=== PATIENT | male | born 1985 | race Caucasian/White ===

== ENCOUNTER 2018-01-23 16:47 | Emergency (ER) | payer BC, OTHER ==
[2018-01-23] MEDS ORDERED: Ondansetron 4 MG Tab.DIS PO ONE (17:06)
[2018-01-23] MEDS ORDERED: Acetaminophen/HYDROcodone 325-5 MG Tab PO ONE (17:06)
[2018-01-23] MEDS ORDERED: Lidocaine 1% 50 ML MDV INJECT ONE (17:35)
--- NOTE | 2018-01-23 17:49 | EDM.PDOC ---
ED HPI GENERAL MEDICAL PROBLEM - General Chief Complaint: Trauma Stated Complaint: [facility] Time Seen by Provider: 01/23/18 16:52 Source of Information: Reports: Patient, RN Notes Reviewed - History of Present Illness INITIAL COMMENTS - FREE TEXT/NARRATIVE: 32-year-old male has been brought in by [facility] after rolling the tractor he was operating on to it's side. He had dirt in the battery loader bucket of the tractor and as he was turning and stopping the tractor rolled unto it's side. It had a roll bar but no cab. He struck his head probably against the steel metal tubing of the roll bar with posterior scalp lac. He called for help due to major bleeding from the lac. He had no LOC but does have worsening [place], mild to moderate pain upper neck and back of head. No other major pain or injury. No chest pain or difficulty breathing. Posterior Headache Pain Score (Numeric/FACES): 6 - Related Data Allergies Allergy/AdvReac Type Severity Reaction Status Date / Time No Known Allergies Allergy Verified 01/23/18 17:04 Home Meds: Home Meds Acetaminophen/HYDROcodone [[place] 325-5 MG] 1 tab PO Q4H PRN #10 tablet 01/23/18 [Rx] Past Medical History Musculoskeletal History: Reports: Other (See Below) Other Musculoskeletal History: left leg with plate/rods and pins Social & Family History - Tobacco Use Smoking Status *Q: Current Every Day Smoker Years of Tobacco use: 1 Packs/Tins Daily: 0.2 - Caffeine Use Caffeine Use: Reports: Energy Drinks Caffeine Use Comment: occasional energy drinnks - Recreational Drug Use Recreational Drug Use: No Review of Systems - Review of Systems Review Of Systems: See Below Constitutional: Reports: No Symptoms Eyes: Reports: No Symptoms Ears: Reports: No Symptoms Nose: Reports: No Symptoms Mouth/Throat: Reports: No Symptoms Respiratory: Denies: Shortness of Breath, Pleuritic Chest Pain Cardiovascular: Denies: Chest Pain GI/Abdominal: Denies: Abdominal Pain, Nausea, Vomiting Musculoskeletal: Reports: Neck Pain. Denies: Shoulder Pain, Arm Pain, Back Pain Skin: Reports: Other (Large posterior scalp laceration) Neurological: Reports: Headache. Denies: Numbness, Tingling, Trouble Speaking, Weakness (Moderate) ED EXAM, GENERAL - Physical Exam Exam: See Below General Appearance: Alert, Mild Distress Eye Exam: Bilateral Eye: PERRL Ears: Normal External Exam, Normal Canal, Other (No blood or fluid from the ears ) Nose: Normal Inspection, Other (No blood or fluid from the nose) Throat/Mouth: Normal Inspection Head: Other (Large 8 cm actively bleeding laceration posterior scalp when dressing removed) Neck: Tender Midline (Right upper posterior neck) Respiratory/Chest: No Respiratory Distress, Lungs Clear, Normal Breath Sounds Cardiovascular: Regular Rate, Rhythm GI/Abdominal: Soft, Non-Tender Back Exam: No: CVA Tenderness (L), Paraspinal Tenderness Extremities: Normal Inspection Neurological: Alert, Oriented Skin Exam: Warm, Dry, Normal Color ED TRAUMA PROCEDURES - Laceration/Wound Repair Posterior Head Lac/Wound Length In cm: 8 Appearance: Irregular, Other (Moderately deep, active bleeding Center area of laceration when dressing removed) Anesthetic Type: Local Skin Prep: Saline Suture Size: 3-0 # of Sutures: 10 Suture Type: Nylon Suture Size: 4-0 # of Sutures: 6 Repaired With: Vicryl Progress/Comments: Multiple Vicryl sutures placed to control hemorrhage. Wound was then further repaired with 4-0 Vicryl subcutaneous and then 3-0 Ethilon cutaneous. Patient tolerated procedure well. Course - Vital Signs Last Recorded V/S: Last Vital Signs Temp 100.8 F H 01/23/18 17:01 Pulse 76 01/23/18 20:15 Resp 16 01/23/18 20:15 BP 119/70 01/23/18 20:15 Pulse Ox 98 01/23/18 20:15 - Orders/Labs/Meds Orders: Active Orders 24 hr Category Date Time Status Cervical Spine wo Cont [CT] Stat Exams 01/23/18 17:04 Taken Head wo Cont [CT] Stat Exams 01/23/18 17:05 Taken Meds: Medications Discontinued Medications Generic Name Dose Route Start Last Admin Trade Name Freq PRN Reason Stop Dose Admin Hydrocodone Bitart/Acetaminophen 1 tab 01/23/18 17:06 01/23/18 17:49 [place] 325-5 Mg PO 01/23/18 17:07 1 tab ONETIME ONE Administration Lidocaine HCl 50 ml 01/23/18 17:35 01/23/18 17:49 Xylocaine 1% INJECT 01/23/18 17:36 50 ml ONETIME ONE Administration Ondansetron HCl 4 mg 01/23/18 17:06 01/23/18 17:49 Zofran Odt PO 01/23/18 17:07 4 mg ONETIME ONE Administration - Re-Assessments/Exams Free Text/Narrative Re-Assessment/Exam: 01/23/18 20:34 CT of head was negative for acute abnormality, CT of neck negative for acute fracture. Patient was having moderately severe headache after arrival, was given one hydrocodone by mouth. He does have at least mild to moderate concussion. Charge instructions as documented. Departure - Departure Time of Disposition: 19:57 Disposition: Home, Self-Care 01 Condition: Fair Clinical Impression: Scalp laceration Qualifiers: Encounter type: initial encounter Qualified Code(s): S01.01XA - Laceration without foreign body of scalp, initial encounter Head concussion Qualifiers: Encounter type: initial encounter Loss of consciousness presence/duration: without LOC Qualified Code(s): S06.0X0A - Concussion without loss of consciousness, initial encounter - Discharge Information Prescriptions: Acetaminophen/HYDROcodone [[place] 325-5 MG] 1 tab PO Q4H PRN #10 tablet PRN Reason: Pain Instructions: Head Injury, Adult, Laceration Care, Adult Referrals: PCP,None [Primary Care Provider] - Forms: ED Department Discharge, ED Return to Work/School Form Additional Instructions: Rest. The treatment for head concussion is physical rest and brain rest so no exertional activity recommended for at least the next 3-5 days. You may go back to work next Sunday light duty as tolerated. Ice packs and elevation to back of head as needed for swelling, stitches out in about 12 days. Tylenol every 6- 8 hours if needed for mild to moderate discomfort or hydrocodone if needed for more severe pain. Do not take Tylenol and hydrocodone at the same time. Do not drive or work when taking hydrocodone. Follow-up clinic as needed. Return to ED as needed if symptoms worsening in any way. - My Orders Last 24 Hours: My Active Orders 01/23/18 17:04 Cervical Spine wo Cont [CT] Stat 01/23/18 17:05 Head wo Cont [CT] Stat - Assessment/Plan Last 24 Hours: My Active Orders 01/23/18 17:04 Cervical Spine wo Cont [CT] Stat 01/23/18 17:05 Head wo Cont [CT] Stat
--- NOTE | 2018-01-28 08:38 | CT ---
CT cervical spine Technique: Multiple axial sections through the cervical spine were obtained. Study was obtained from above C1 inferiorly to the top of T1. Reconstructed sagittal and coronal images were reviewed. Findings: Study less than optimal due to photon attenuation secondary to patient body habitus. Vertebral body heights are maintained. Mild disc space narrowing is noted at C7-T1. No discrete fracture is appreciated. No bony central canal stenosis is seen. Mild right sided neural foraminal stenosis is noted at C3-C4. Other neural foramina are widely patent. No abnormal subluxation is seen. Scoliosis is present. Impression: 1. Scoliosis. 2. Slight neural foraminal narrowing at C3-C4 on the right side. 3. Nothing acute is seen. Diagnostic code #2 I agree with preliminary report from [facility], finalized at 01/23/18, 8:07 PM Central Time
--- NOTE | 2018-01-30 08:09 | CT ---
Head CT Technique: Multiple axial sections through the brain were obtained. Intravenous contrast was not utilized. Comparison: No prior intracranial imaging. Soft tissue swelling and contusion seen within the posterior right scalp. Ventricles along with basal cisterns and sulci over the convexities are within normal limits for the patient's age. No abnormal parenchymal densities are seen. No evidence of intracranial hemorrhage. No midline shift or mass effect is seen. Bone window settings were reviewed which show the visualized sinuses to appear clear. No acute calvarial abnormality is identified. Impression: 1. Scalp contusion and hematoma as noted above. 2. No acute intracranial abnormality is seen. No skull fracture is identified. Diagnostic code #2 I agree with preliminary report issued by [facility] ([facility] preliminary report dictated on 01/23/18, 8:04 PM Central Time)
== END 2018-01-23 20:15 | disposition home or self-care (01) ==
LOC: JD.ED 16:47
DX: S06.0X0A Concussion without loss of consciousness, initial encounter (principal); F17.210 Nicotine dependence, cigarettes, uncomplicated; S01.01XA Laceration without foreign body of scalp, initial encounter; W22.8XXA Striking against or struck by other objects, initial encounter
CPT/HCPCS: 12034; 70450; 72125; 99284; A9270; 13121

== ENCOUNTER 2019-11-28 19:56 | Emergency (ER) | payer BC ==
[2019-11-28] MEDS ORDERED: Sodium Chloride 0.9% 10 ML Syringe FLUSH PRN (20:38)
[2019-11-28] MEDS ORDERED: Ketorolac 30 MG/ML SDV IVPUSH ONE (20:48)
[2019-11-28] MEDS ORDERED: Ondansetron 4 MG/2 ML SDV IVPUSH ONE (20:48)
--- NOTE | 2019-11-28 20:56 | EDM.PDOC ---
ED HPI GENERAL MEDICAL PROBLEM - General Chief Complaint: Gastrointestinal Problem Stated Complaint: ABDOMINAL PAIN DIARRHEA Time Seen by Provider: 11/28/19 19:59 Source of Information: Reports: Patient History Limitations: Reports: No Limitations - History of Present Illness INITIAL COMMENTS - FREE TEXT/NARRATIVE: Patient is a 34-year-old male who presents to the emergency department with complaints of cramping abdominal pain, watery yellow stools, and nausea with emesis x2. He states the symptoms began abruptly around 3:00pm this afternoon. Prior to this time he is feeling well. The pain is localized to his epigastrum. Describes as a constant dull ache with intermittent sharp, cramping pain. He states that he can go about 20 minutes or so without having significant pain, however the cramping always returns. He has had about 8 episodes of watery, yellow diarrhea since 3:00 this afternoon. He states he did have 2 small emesis, but overall he feels mostly just nauseous. He has been able to keep fluids down. He has not had any questionable food intake. He states he did eat some popcorn since shortly prior to the onset of symptoms, however in the 8 to 10 hours prior to that he did not have anything questionable. He has had no fever or chills. - Related Data Allergies Allergy/AdvReac Type Severity Reaction Status Date / Time No Known Allergies Allergy Verified 01/23/18 17:04 Past Medical History HEENT History: Reports: Impaired Vision Musculoskeletal History: Reports: Other (See Below) Other Musculoskeletal History: left leg with plate/rods and pins Social & Family History - Family History Family Medical History: Noncontributory - Caffeine Use Caffeine Use: Reports: Energy Drinks Caffeine Use Comment: occasional energy drinnks ED ROS GENERAL - Review of Systems Review Of Systems: See Below Constitutional: Reports: Decreased Appetite. Denies: Fever, Chills HEENT: Reports: No Symptoms Respiratory: Reports: No Symptoms Cardiovascular: Reports: No Symptoms Endocrine: Reports: No Symptoms GI/Abdominal: Reports: Abdominal Pain (Epigastric cramping), Diarrhea, Decreased Appetite, Nausea, Vomiting : Reports: No Symptoms. Denies: Flank Pain Musculoskeletal: Reports: No Symptoms Skin: Reports: No Symptoms Neurological: Reports: No Symptoms Psychiatric: Reports: No Symptoms Hematologic/Lymphatic: Reports: No Symptoms Immunologic: Reports: No Symptoms ED EXAM, GI/ABD - Physical Exam Exam: See Below Exam Limited By: No Limitations General Appearance: Alert, WD/WN, Mild Distress Respiratory/Chest: No Respiratory Distress, Lungs Clear, Normal Breath Sounds, No Accessory Muscle Use, Chest Non-Tender Cardiovascular: Normal Peripheral Pulses, Regular Rate, Rhythm, No Edema, No Gallop, No JVD, No Murmur, No Rub GI/Abdominal Exam: Normal Bowel Sounds, Soft, No Organomegaly, No Distention, No Abnormal Bruit, No Mass, Pelvis Stable, Guarding, Rigid, Rebound, Tender (Epigastric) Neurological: Alert, Oriented, CN II-XII Intact, Normal Cognition, Normal Gait, Normal Reflexes, No Motor/Sensory Deficits Psychiatric: Normal Affect, Normal Mood Skin Exam: Warm, Dry, Intact, Normal Color, No Rash Course - Vital Signs Last Recorded V/S: Last Vital Signs Temp 97.9 F 11/28/19 20:32 Pulse 81 11/28/19 20:32 Resp 16 11/28/19 20:32 BP 131/77 11/28/19 20:32 Pulse Ox 98 11/28/19 20:32 - Orders/Labs/Meds Orders: Active Orders 24 hr Category Date Time Status Peripheral IV Care [RC] . DIRECTED Care 11/28/19 20:38 Active Peripheral IV Insertion Adult [OM.PC] Stat Oth 11/28/19 20:38 Ordered Labs: Laboratory Tests 11/28/19 11/28/19 11/28/19 Range/Units 20:40 20:40 20:40 WBC 13.86 H (4.23-9.07) K/mm3 RBC 5.29 (4.63-6.08) M/mm3 Hgb 15.7 (13.7-17.5) gm/dl Hct 45.1 (40.1-51.0) % MCV 85.3 (79.0-92.2) fl MCH 29.7 (25.7-32.2) pg MCHC 34.8 (32.2-35.5) g/dl RDW Std Deviation 40.9 (35.1-43.9) fL Plt Count 259 (163-337) K/mm3 MPV 10.8 (9.4-12.3) fl Neut % (Auto) 72.4 H (34.0-67.9) % Lymph % (Auto) 16.9 L (21.8-53.1) % [place] % (Auto) 8.4 (5.3-12.2) % Eos % (Auto) 1.8 (0.8-7.0) Baso % (Auto) 0.2 (0.1-1.2) % Neut # (Auto) 10.03 H (1.78-5.38) K/mm3 Lymph # (Auto) 2.34 (1.32-3.57) K/mm3 [place] # (Auto) 1.17 H (0.30-0.82) K/mm3 Eos # (Auto) 0.25 (0.04-0.54) K/mm3 Baso # (Auto) 0.03 (0.01-0.08) K/mm3 Sodium 143 (136-145) mEq/L Potassium 3.4 L (3.5-5.1) mEq/L Chloride 106 (98-107) mEq/L Carbon Dioxide 24 (21-32) mEq/L Anion Gap 16.4 H (5-15) BUN 9 (7-18) mg/dL Creatinine 1.0 (0.7-1.3) mg/dL Est Cr Clr Drug Dosing 112.95 mL/min Estimated GFR (MDRD) > 60 (>60) mL/min BUN/Creatinine Ratio 9.0 L (14-18) Glucose 87 (74-106) mg/dL Calcium 9.1 (8.5-10.1) mg/dL Magnesium 1.9 (1.8-2.4) mg/dl Total Bilirubin 0.6 (0.2-1.0) mg/dL AST 28 (15-37) U/L ALT 62 (16-63) U/L Alkaline Phosphatase 90 (46-116) U/L C-Reactive Protein 1.1 H* (<1.0) mg/dL Total Protein 8.0 (6.4-8.2) g/dl Albumin 4.1 (3.4-5.0) g/dl Globulin 3.9 gm/dL Albumin/Globulin Ratio 1.1 (1-2) Lipase 54 L (73-393) U/L Meds: Medications Discontinued Medications Generic Name Dose Route Start Last Admin Trade Name Freq PRN Reason Stop Dose Admin Dicyclomine HCl 20 mg 11/28/19 22:04 11/28/19 22:11 Bentyl PO 11/28/19 22:05 20 mg ONETIME ONE Administration Sodium Chloride 1,000 mls @ 999 mls/hr 11/28/19 21:00 11/28/19 20:57 Normal Saline IV 999 mls/hr ASDIRECTED DHRUV Administration Ketorolac Tromethamine 30 mg 11/28/19 20:48 11/28/19 20:57 Toradol IVPUSH 11/28/19 20:49 30 mg ONETIME ONE Administration Ondansetron HCl 4 mg 11/28/19 20:48 11/28/19 20:57 Zofran IVPUSH 11/28/19 20:49 4 mg ONETIME ONE Administration Sodium Chloride 10 ml 11/28/19 20:38 11/28/19 20:44 Saline Flush FLUSH 10 ml ASDIRECTED PRN Administration Keep Vein Open - Re-Assessments/Exams Free Text/Narrative Re-Assessment/Exam: 11/28/19 22:13 Hematology significant for white count slightly elevated at 13.86, likely due to stress response. Potassium minimally low at 3.4, anion gap slightly elevated at 16.4, CRP minimally elevated at 1.1. Alk phos is normal, lipase is slightly low. Patient's pain is localized to the epigastrium. He has no tenderness in any other areas of the abdomen which lessens concern for cholecystitis, pancreatitis, diverticulitis, or appendicitis. Discussed with patient that he is likely suffering from a viral gastroenteritis. He does intermittently still have the stabbing, cramping pain in the epigastrium. I have ordered Bentyl to be given now. I will discharge him home with dicyclomine and Zofran through the instymed. Clear liquid diet for the next 24 to 48 hours and advance as tolerated. Return to the ER for worsening symptoms. Discharge instructions as documented. Departure - Departure Time of Disposition: 22:18 Disposition: Home, Self-Care 01 Condition: Good Clinical Impression: Gastroenteritis - Discharge Information *PRESCRIPTION DRUG MONITORING PROGRAM REVIEWED*: No *COPY OF PRESCRIPTION DRUG MONITORING REPORT IN PATIENT KIN: No Instructions: Viral Gastroenteritis, Adult Referrals: PCP,None [Primary Care Provider] - Forms: ED Department Discharge Additional Instructions: You were seen in the emergency department today for epigastric pain, nausea vomiting, and diarrhea. Blood work was completed and was found to be overall normal. As we discussed, it is like that you are suffering from a viral gastroenteritis, also known as a stomach flu. The course of this illness generally last 24 to 48 hours. I would recommend that you maintain a clear liquid diet for at least the next 24 to 48 hours and then advance as tolerated. Avoid dairy products and fruit juices until you have completely recovered. Increase your fluid intake with items such as Gatorade or Powerade to offset the water losses from your diarrhea. A prescription for Zofran for nausea and dicyclomine for abdominal cramping has been provided to you. Use these medications as prescribed. If your symptoms should worsen rather than improve, please return to the emergency department for reevaluation. Sepsis Event Note (ED) - Evaluation Sepsis Screening Result: No Definite Risk - Focused Exam Vital Signs: Vital Signs Temp Pulse Resp BP Pulse Ox 11/28/19 20:32 97.9 F 81 16 131/77 98 - My Orders Last 24 Hours: My Active Orders 11/28/19 20:38 Peripheral IV Care [RC] . DIRECTED Peripheral IV Insertion Adult [OM.PC] Stat - Assessment/Plan Last 24 Hours: My Active Orders 11/28/19 20:38 Peripheral IV Care [RC] . DIRECTED Peripheral IV Insertion Adult [OM.PC] Stat
[2019-11-28] MEDS ORDERED: Sodium Chloride 0.9% 1,000 ML IV SCH (21:00)
[2019-11-28] MEDS ORDERED: Dicyclomine 10 MG Cap PO ONE (22:04)
== END 2019-11-28 22:40 | disposition home or self-care (01) ==
LOC: JD.ED 19:56
DX: K52.9 Noninfective gastroenteritis and colitis, unspecified (principal); E87.6 Hypokalemia
CPT/HCPCS: 36415; 80053; 83690; 83735; 85025; 86140; 96361; 96374; 96375; 99284; A9270; J1885; J2405; J7030; 99283

== ENCOUNTER 2021-02-12 00:52 | Emergency (ER) | payer BC ==
[2021-02-12] MEDS ORDERED: Diphtheria,Pertussis(Acell),Tetanus Vaccine 0.5 ML Syringe IM ONE (02:17)
--- NOTE | 2021-02-12 02:21 | EDM.PDOC ---
<Deepak Chicas - Last Filed: 02/12/21 09:21> ED HPI GENERAL MEDICAL PROBLEM - General Chief Complaint: Laceration Stated Complaint: FALL/ RT EYE LAC Time Seen by Provider: 02/12/21 02:07 - Related Data Allergies Allergy/AdvReac Type Severity Reaction Status Date / Time No Known Allergies Allergy Verified 01/23/18 17:04 ED SKIN PROCEDURES - Laceration/Wound Repair Right Forehead Appearance: Subcutaneous, Mildly Contaminated Anesthetic Type: Local Local Anesthesia - Lidocaine (Xylocaine): 1% Plain Local Anesthetic Volume: 2cc Skin Prep: Chlorhexidine (Hibiciens) Exploration/Debridement/Repair: Wound Explored, Explored to Base, Other (Wound was scrubbed aggressively with Hibiclens solution. There is not much to repair other than the little zigzag laceration. This was next to a nonviable flap the flap was debrided and this was approximated as best as it could) Right Face Appearance: Subcutaneous, Other (Located above right lateral most eye) Anesthetic Type: Local Local Anesthesia - Lidocaine (Xylocaine): 1% Plain Local Anesthetic Volume: 2cc Closed with: Sutures Lac/Wound length In cm: 1.3 Suture Size: 4-0 # of Sutures: 4 Suture Type: Nylon Tetanus Status Addressed: Yes (His tetanus was updated) Complications: No Course - Re-Assessments/Exams Free Text/Narrative Re-Assessment/Exam: 02/12/21 08:47 Assumed care at change of shift. Patient needs the wounds to his forehead and right upper eyelid addressed. I examined these and initially did not believe anything could be done with the deep abrasions on the forehead however I did find after cleaning this a jagged 1.3 cm laceration. I attempted to reapproximate this with 3 simple stitches of 4-0 nylon. It helped a little. The laceration on his left upper eyelid 3.6 cm irregular oblique was repaired with 3 simple stitches of 4-0 nylon without difficulty this helped significantly there was a little satellite laceration that had a single stitch put in it for a total of 4 stitches on the eyelid. 02/12/21 08:54 The patient is doing well at this time we will discharge. His CTs and exam did show some superficial contamination from gravel and dirt. Much of this was cleaned out I did inform the patient no uncertain terms that not all of it can be removed and generally does more harm to try and remove it then leave it in place the patient does voice understanding with this. I also informed him that it is possible to miss fairly large pieces of debris that have worked their way into the wound and again the patient voices understanding with this. Departure - Departure Time of Disposition: 08:55 Disposition: Home, Self-Care 01 Clinical Impression: Head injury, Facial laceration - Discharge Information Instructions: Head Injury, Adult, Laceration Care, Adult Referrals: PCP,None [Primary Care Provider] - Forms: ED Department Discharge Additional Instructions: Return to the emergency room with any questions problems or worsening symptoms. Keep the wound clean and dry for the next 24 hours after 24 hours you can let water gently run over the area and then dab dry no scrubbing. You have 3 stitches in your forehead and 4 stitches above your right eye. Have the stitches removed in 6 or 7 days. This is best done in the clinic you can call Sunday for an appointment on Sunday. The clinic phone number is [phone]. If you have increasing pain redness swelling or drainage immediately return to the emergency room for recheck. You had CT scans done of your facial structures and your head no apparent injury was noted to the bones you had significant soft tissue swelling in the areas of the laceration as was expected. <Margarito Dominguez - Last Filed: 02/13/21 20:26> ED HPI GENERAL MEDICAL PROBLEM - General Source of Information: Reports: Patient History Limitations: Reports: Intoxication - History of Present Illness INITIAL COMMENTS - FREE TEXT/NARRATIVE: Mr. Plasencia is a pleasant 35-year-old man who now presents the ED after becoming intoxicated and falling down on asphalt around 23:00 last night, striking his face. He has significant swelling to his right forehead and about his right eye, but denies suffering a loss of consciousness or injuring his neck. The patient does not know when his last tetanus vaccination was. He agreed to receive a tetanus vaccination today. Here in the ED, the patient's initial BP is found to be mildly elevated at 145/98, otherwise, he is hemodynamically stable, afebrile, saturating 98% on room air. I initially found him to be sleeping, however, he was aroused with verbal stimulation only. Despite his facial injuries, he appears to be relatively comfortable, in no acute distress. Her prior to last night, the patient denies having a recent fever, chills, sore throat, ear pain, nasal or sinus congestion, cough, dyspnea, chest pain, palpitations, nausea, vomiting, constipation, diarrhea, abdominal pain, urinary symptoms, recent weight gain or weight loss, recent bloody bowel movements or black bowel movements, recent joint aches, headaches, or rashes. The patient does not have a PCP. He has received 2 COVID vaccinations. Right Face/Facial Pain Score (Numeric/FACES): 6 Past Medical History HEENT History: Reports: Impaired Vision Endocrine/Metabolic History: Reports: Obesity/BMI 30+ - Past Surgical History HEENT Surgical History: Reports: Oral Surgery (dental extractions) GI Surgical History: Reports: Colonoscopy (x 2) Musculoskeletal Surgical History: Reports: ORIF (left leg, x 2) Social & Family History - Tobacco Use Tobacco Use Status *Q: Former Tobacco User Years of Tobacco use: 14 Packs/Tins Daily: 0.1 Month/Year Tobacco Last Used: Quit 2018 Tobacco Use Comment: Started smoking 2004 - Caffeine Use Caffeine Use: Reports: Energy Drinks Caffeine Use Comment: occasional energy drinnks - Alcohol Use Alcohol Use History: Yes Alcohol Use Frequency: Socially (occasionally to excess) - Recreational Drug Use Recreational Drug Use: No - Living Situation & Occupation Living situation: Reports: Single, Alone Occupation: Employed (Advanced Nursing Professor) ED ROS GENERAL - Review of Systems Review Of Systems: Comprehensive ROS is negative, except as noted in HPI. ED EXAM, SKIN/RASH Exam: See Below Exam Limited By: Intoxication General Appearance: WD/WN, No Apparent Distress Eye Exam: Bilateral Eye: EOMI, Normal Inspection Ears: Normal External Exam, Normal Canal, Hearing Grossly Normal, Normal TMs Nose: Normal Mucosa, No Blood, Other (Abrasions to bridge of nose) Throat/Mouth: Normal Inspection, Normal Lips, Normal Teeth, Normal Gums, Normal Oropharynx, Normal Voice, No Airway Compromise Head: Normocephalic, Other (Macerated lacerations above the right eyebrow, and within the lateral aspect of the right eyebrow, with significant associated swelling/ecchymosis) Neck: Normal Inspection, Supple, Non-Tender, Full Range of Motion Respiratory/Chest: No Respiratory Distress, Lungs Clear, Normal Breath Sounds, No Accessory Muscle Use, Chest Non-Tender Cardiovascular: Normal Peripheral Pulses, Regular Rate, Rhythm, No Edema, No Gallop, No JVD, No Murmur, No Rub Peripheral Pulses: 3+: Radial (L), Radial (R) GI/Abdominal: Normal Bowel Sounds, Soft, Non-Tender, No Organomegaly, No Distention, No Abnormal Bruit, No Mass Back Exam: Normal Inspection, Full Range of Motion, NT Extremities: Normal Inspection, Normal Range of Motion, Non-Tender, No Pedal Edema, Normal Capillary Refill Neurological: Oriented, No Motor/Sensory Deficits Psychiatric: Normal Affect Skin: Warm, Dry, Normal Color, No Rash Course - Vital Signs Last Recorded V/S: Last Vital Signs Temp 36.8 C 02/12/21 01:13 Pulse 82 02/12/21 01:13 Resp 18 02/12/21 01:13 BP 145/98 H 02/12/21 01:13 Pulse Ox 98 02/12/21 01:13 - Orders/Labs/Meds Meds: Medications Discontinued Medications Generic Name Dose Route Start Last Admin Trade Name Yuval PRN Reason Stop Dose Admin Diphtheria/Tetanus/Acell Pertussis 0.5 ml 02/12/21 02:17 02/12/21 04:14 Diphtheria,Pertussis(Acell),Tetanus Vaccine 0.5 Ml Syringe IM 02/12/21 02:18 0.5 ml .ONCE ONE Administration Lidocaine HCl 10 ml 02/12/21 08:07 02/12/21 08:36 Lidocaine 1% 10 Ml Mdv INJECT 02/12/21 08:08 10 ml ONETIME ONE Administration Lidocaine/Tetracaine 1 ml 02/12/21 07:22 02/12/21 07:23 Lidocaine/Epinephrine/Tetracaine Soln 1 Ml TOP 02/12/21 07:23 Not Given ONETIME ONE Lidocaine/Tetracaine 2 ml 02/12/21 07:23 02/12/21 07:31 Lidocaine/Epinephrine/Tetracaine Soln 1 Ml TOP 02/12/21 07:24 2 ml ONETIME ONE Administration - Re-Assessments/Exams Free Text/Narrative Re-Assessment/Exam: 02/12/21 02:18 Because the patient is intoxicated, and the nature of his fall, I have ordered CTs of his head and maxillofacial without contrast. The patient will be given a tetanus vaccination. 02/12/21 03:43 CT of the head without contrast is read by [facility] as "There is extensive anterior right frontal/forehead/periorbital/facial soft tissue injury with abrasion versus laceration and a small amount of superficially embedded radiopaque foreign debris. There is no acute intracranial process. 02/12/21 03:59 CT maxillofacial without contrast is read by [facility] as "Extensive anterior right frontal/forehead scalp and periorbital/facial hematoma with abrasion and superficially embedded foreign debris. There is no acute maxillofacial fracture. Sepsis Event Note (ED) - Evaluation Sepsis Screening Result: No Definite Risk
[2021-02-12] MEDS ORDERED: Lidocaine/EPINEPHrine/Tetracaine Soln 1 ML TOP ONE ×2 (07:22→07:23)
[2021-02-12] MEDS ORDERED: Lidocaine 1% 10 ML MDV INJECT ONE (08:07)
--- NOTE | 2021-02-12 10:38 | CT ---
Head CT Technique: Multiple axial sections through the brain were obtained. Intravenous contrast not utilized. Reconstructed coronal and sagittal images were obtained. Comparison: Prior head CT study of 01/23/18. Findings: Soft tissue swelling is seen within the right periorbital region. There is some increased density being seen around the area of soft tissue swelling presumably due to foreign bodies. Mild soft tissue laceration is also present within the area of soft tissue swelling. Ventricles along with basal cisterns and sulci over the convexities are within normal limits for the patient's age. No abnormal parenchymal densities are seen. No evidence of intracranial hemorrhage is seen. No midline shift or mass-effect is seen. Bone window settings were reviewed. Visualized paranasal sinuses and mastoid sinuses show nothing acute. No acute calvarial abnormality is seen. Impression: 1. Soft tissue swelling mostly around the right periorbital region. Minimal foreign bodies are present as well as soft tissue laceration within the area of soft tissue swelling. 2. No acute intracranial abnormality is seen. Diagnostic code #3 I agree with preliminary report from [facility], finalized on 02/12/21, 4:30 AM CDT, code 1
--- NOTE | 2021-02-12 10:38 | CT ---
CT facial bones Technique: Multiple axial sections were obtained through the facial structures. Reconstructed coronal and sagittal images were obtained. Intravenous contrast was not utilized. Comparison: No prior facial bone study is available. Findings: Soft tissue swelling is noted within the right periorbital region. Small amount of soft tissue foreign body is seen as well as soft tissue injury in the area of soft tissue swelling. Paranasal sinuses are clear. No acute facial bone fracture or other osseous abnormality is appreciated. Impression: 1. Soft tissue findings within the right periorbital region described on head CT exam. 2. Nothing acute is otherwise seen on CT study of the facial bones. Diagnostic code #3 I agree with preliminary report from [facility], finalized on 02/12/21, 4:34 AM CDT, code 1
== END 2021-02-12 09:23 | disposition home or self-care (01) ==
LOC: JD.ED 00:52
DX: S01.81XA Laceration without foreign body of other part of head, initial encounter (principal); S01.112A Laceration without foreign body of left eyelid and periocular area, initial encounter; F10.129 Alcohol abuse with intoxication, unspecified; E66.9 Obesity, unspecified; Z87.891 Personal history of nicotine dependence; Z23 Encounter for immunization; W17.89XA Other fall from one level to another, initial encounter
CPT/HCPCS: 12013; 70450; 70450-26; 70486; 70486-26; 90471; 90715; 99283; 99283-25